=== PATIENT | female | born 1980 | race Caucasian/White ===

== ENCOUNTER → 2017-10-16 | Outpatient (CLI) | payer BC ==
--- NOTE | 2017-10-16 09:14 | US ---
EXAMINATION TYPE: US abdomen complete DATE OF EXAM: 10/16/2017 COMPARISON: NONE CLINICAL HISTORY: R10.2 pelvic pain, R10.11 Upper Quadrant Abd pain. Intermittent RUQ pain and N/V x 1 year EXAM MEASUREMENTS: Liver Length: 14.7 cm Gallbladder Wall: 0.2 cm CBD: 0.4 cm Spleen: 10.4 cm Right Kidney: 10.4 x 4.1 x 5.0 cm Left Kidney: 11.7 x 5.2 x 4.6 cm Pancreas: visualized portions wnl, tail obscured by overlying midline bowel gas Liver: wnl Gallbladder: wnl Evidence for sonographic Clark's sign: yes CBD: wnl Spleen: wnl Right Kidney: wnl Left Kidney: wnl Upper IVC: wnl Abd Aorta: visualized portions wnl, prox and mid portion limited by overlying midline bowel gas The liver is homogenous. The intrahepatic portion of the IVC and proximal abdominal aorta are within normal limits. There is no evidence of cholelithiasis. Common bile duct is unremarkable. The visu alized portions of the pancreas are homogenous. The spleen is unremarkable. Kidneys are symmetric a nd free of hydronephrosis. No renal lesions are seen. IMPRESSION: 1. No evidence of cholelithiasis or sonographic evidence of acute cholecystitis other than a positive sonographic Clark sign. Therefore HIDA scan with CCK is recommended to evaluate for chronic cholecy stitis and biliary dyskinesia. 2. Partial obscuration of the pancreas and aorta secondary to overlying bowel gas.
--- NOTE | 2017-10-16 09:38 | US ---
EXAMINATION TYPE: US pelvic complete DATE OF EXAM: 10/16/2017 COMPARISON: NONE CLINICAL HISTORY: R10.2 pelvic pain, R10.11 Upper Quadrant Abd pain. Family history of uterine and ov drew CA, 2, para 2, history of partial hysterectomy 2013 TECHNIQUE: Transabdominal sonographic images of the pelvis were acquired. Transvaginal sonographi c images were medically necessary to better assess the following anatomy: ovaries. Date of LMP: 2013 EXAM MEASUREMENTS: Uterus: surgically absent Endometrial Stripe: surgically absent Right Ovary: 3.9 x 3.2 x 3.2 cm Left Ovary: 3.0 x 1.8 x 1.8 cm 1. Uterus: surgically absent 2. Endometrium: surgically absent 3. Right Ovary: 2.3 x 2.0 x 2.3cm complex lesion with peripheral vascularity 4. Left Ovary: 1.1 x 1.1 x 2.3cm paraovarian cyst 5. Bilateral Adnexa: wnl 6. Posterior cul-de-sac: 5.1 x 4.3 x 7.8cm pocket of free fluid IMPRESSION: 1. Complex 2.3 cm right ovarian lesion that may represent an involuting hemorrhagic cyst. Short-term follow-up in 1-3 menstrual cycles is recommended to ensure resolution. 2. Moderate amount of dependent anechoic appearing simple free fluid.
== END | disposition home or self-care (01) ==
LOC: RADUSWWP 08:13
PROVIDERS: ATTEND Internal Medicine
DX: N83.9 Noninflammatory disorder of ovary, fallopian tube and broad ligament, unspecified (principal); R10.11 Right upper quadrant pain
CPT/HCPCS: 76700; 76830; 76856

== ENCOUNTER → 2017-11-11 | Outpatient (CLI) | payer BC ==
--- NOTE | 2017-11-11 08:59 | NM ---
EXAMINATION TYPE: NM hepatobiliary w EF DATE OF EXAM: 11/11/2017 COMPARISON: NONE HISTORY: Abdominal pain, reflux, nausea, and diarrhea and decreased appetite. TECHNIQUE: After the intravenous administration of 5.23 mCi Tc 99m Mebrofenin hepatobiliary scintigra phy is performed. Immediate images post injection. FINDINGS: There is satisfactory initial accumulation of tracer by the liver. The gallbladder is visualized wit hin 10 minutes. The small bowel activity is noted within 32 minutes. At one hour 8 ounces of oral e nsure plus is given to mimic CCK and gallbladder ejection fraction is calculated at 66 %, in the norm al range. Therefore there is no scintigraphic evidence of cystic or common bile duct obstruction to suggest acute cholecystitis or gallbladder dyskinesia. IMPRESSION: No scintigraphic evidence of acute cholecystitis, chronic cholecystitis or biliary dyskin esia.
== END | disposition home or self-care (01) ==
LOC: RADNMMAIN 06:47
PROVIDERS: ATTEND Internal Medicine
DX: R10.11 Right upper quadrant pain (principal)
CPT/HCPCS: 78226; A9537

== ENCOUNTER → 2018-12-17 | Outpatient (CLI) | payer BC ==
--- NOTE | 2018-12-17 14:46 | US ---
EXAMINATION TYPE: US pelvis complete transvag DATE OF EXAM: 12/17/2018 COMPARISON: CLINICAL HISTORY: R10.2 PELVIC PAIN. General pelvic pain. Uterus removed. Family hx of ovarian can cer. TECHNIQUE: Transvaginal (TV) and Transabdominal (TA) . Transabdominal sonographic images of the pel vis were acquired. Transvaginal sonographic images were medically necessary to better assess the fol lowing anatomy: Ovaries Date of LMP: Uterus removed EXAM MEASUREMENTS: Right Ovary: 3.4 x 2.0 x 2.0 cm Left Ovary: 2.8 x 1.6 x 1.9 cm 1. Uterus: Surgically absent 2. Endometrium: Surgically absent 3. Right Ovary: Follicles seen 4. Left Ovary: Follicles seen. Cystic appearing lesion seen adjacent to left ovary = 1.0 x 1.1 x 1. 0 cm 5. Bilateral Adnexa: no free fluid 6. Posterior cul-de-sac: no free fluid IMPRESSION: 1. Bilateral ovarian follicles.
== END | disposition home or self-care (01) ==
LOC: RADUSWWP 12:45
PROVIDERS: ATTEND Internal Medicine
DX: R10.2 Pelvic and perineal pain (principal)
CPT/HCPCS: 76830; 76856